=== PATIENT | male | born 1965 | race Caucasian/White ===

== ENCOUNTER 2017-01-08 16:31 | Inpatient (IN) | payer OTHER ==
[~2017-01-08] VITALS: Ht 170 cm; Wt 70.8 kg
[2017-01-08 16:44] VITALS: BP 204/118
--- NOTE | 2017-01-08 16:51 | NUR ---
CARL HOLLOWAY NOTIFIED OF PATIENTS BP.
[2017-01-08 17:21] LABS: BASO # 0.1 10*3/uL (0.0-0.1); BASO % 0.7 % (0.0-1.0); EOS % 0.1 % (1.0-4.0); HEMATOCRIT 40.1 % (42.0-52.0); HEMOGLOBIN 13.6 g/dl (14.0-18.0); LYMPH # 1.3 10*3/uL (1.3-4.4); LYMPH % 18.1 % (27.0-41.0); MEAN CELL VOLUME 105.2 fl (80.0-94.0); MEAN CORPUSCULAR HGB 35.7 pg (27.0-31.0); MEAN CORPUSCULAR HGB CONC 33.9 g/dl (33.0-37.0); MEAN PLATELET VOLUME 12.9 fl (9.6-12.3); MONO # 1.1 10*3/uL (0.1-1.0); NEUT # 4.9 10*3/uL (2.3-7.9); NEUT % 65.7 % (47.0-73.0); PLATELET COUNT AUTOMATED 98 10*3/uL (130-400); RED BLOOD COUNT 3.81 10*6/uL (4.50-5.90); WHITE BLOOD COUNT 7.4 10*3/uL (4.8-10.8)
[2017-01-08 17:35] LABS: ALBUMIN 3.5 gm/dl (3.1-4.5); ALKALINE PHOSPHATASE 217 U/L (45-117); BUN 6 mg/dl (7-24); CHLORIDE 102 mmol/L (98-107); CREATININE 0.62 mg/dL (0.70-1.30); POTASSIUM 3.5 mmol/L (3.5-5.1); SGOT/AST 202 IU/L (3-35); SGPT/ALT 197 U/L (12-78); SODIUM 139 mmol/L (136-145); TOTAL PROTEIN 7.1 gm/dL (6.4-8.2)
--- NOTE | 2017-01-08 17:35 | NUR ---
PT MEDICATED FOR HTN AND WITHDRAWAL SYMPTOMS AT THIS TIME.
[2017-01-08 17:56] LABS: BILIRUBIN NEGATIVE (NEGATIVE); BLOOD 2+ (NEGATIVE); CLARITY CLEAR (CLEAR); COLOR YELLOW (YELLOW); GLUCOSE 2+ (NEGATIVE); KETONE NEGATIVE (NEGATIVE); LEUKO ESTERASE NEGATIVE (NEGATIVE); NITRITE NEGATIVE (NEGATIVE); PH 6.5 (5.0-9.0)
[2017-01-08 18:00] VITALS: BP 156/97
[2017-01-08 18:06] LABS: URINE AMPHETAMINES < 1000 (1000ng/ml); URINE BARBITURATES < 200 (200ng/ml); URINE BENZODIAZEPINES < 200 (200ng/ml); URINE CANNABINOIDS (THC) < 50 (50ng/ml); URINE COCAINE < 300 (300ng/ml); URINE METHADONE < 300 (300ng/ml); URINE OPIATES < 300 (300ng/ml)
[2017-01-08 18:07] LABS: BACTERIA 3+; WBC 0-2 wbc/hpf (0-5)
[2017-01-08 18:10] LABS: URINE PHENCYCLIDINE < 25 (25ng/ml)
[2017-01-08 18:15] VITALS: BP 169/107
[2017-01-08 18:20] LABS: LIPASE 231 U/L (73-393)
[2017-01-08 18:26] LABS: INTERNATIONAL NORM RATIO 0.9 (2.0-3.5)
--- NOTE | 2017-01-08 18:30 | NUR ---
A 51, admitted to [facility]U, under the services of FIDEL Evans DO with a diagnosis of alchol withdrawl. Chief complaint is hx of drinking every day for 30 years. this is thefirst time he has not had a drink in a day. Patient arrived via stretcher from ER. Monitor applied. Initial assessment completed. Vital signs taken and recorded. FIDEL EVANS DO notified of admission to the unit. Orders received. See assessment for past medical history, medications and allergies. Patient and/or family oriented to unit. [facility] visitation policy reviewed. Clothing/patient valuable form completed. SIMON PINEDA
[2017-01-08] MEDS ORDERED: NEURONTIN400 MG PO (18:54)
--- NOTE | 2017-01-08 19:13 | NUR ---
DR. SANTAMARIA HERE TO ASSESS PT. FIRST DOSE OF ATIVAN 1MG PO GIVEN ORDERED.
[2017-01-08 20:00] VITALS: BP 182/110
--- NOTE | 2017-01-08 20:09 | NUR ---
FAMILY VS. [place] PO GIVEN FOR ANXIETY. WILL CONT TO MONITOR. HEP LOCK INTACT. WILL HANG BANANA BAG WHEN RECEIVED FROM PHARMACY. PT REMAINS ALERT AND COOPERATIVE. MONITOR REMAINS NSR IN THE 90'S. PT REMAINS ELEVATED. DR. SANTAMARIA AWARE WHEN HE WAS HERE. PT EATING SUPPER. HOB ELEVATED. CALL LIGHT IN REACH. URINAL AT BEDSIDE.
--- NOTE | 2017-01-08 21:10 | NUR ---
ZESTRIL GIVEN PO PER ORDER. BP NOW 162/103. PT RESTING IN BED WATCHING FOOTBALL. TREMORS STILL NOTED OF HANDS, BUT STATES THAT HE FEELS "SLEEPY".
--- NOTE | 2017-01-08 21:40 | NUR ---
MOTRIN PO FOR C/O'S CHRONIC NECK PAIN. WILL MONITOR.
--- NOTE | 2017-01-08 22:00 | NUR ---
PT BP IS NOW 148/64.
[2017-01-08 22:01] VITALS: BP 148/64
--- NOTE | 2017-01-08 22:03 | NUR ---
EARLIER MEDS EFFECTIVE. RESTING IN BED WITH EYES CLOSED. APPEARS TO BE SLEEPING.
--- NOTE | 2017-01-09 00:18 | NUR ---
ROUTINE ATIVAN GIVEN AT 2320 PER ORDER. EFFECTIVE. RESTING IN BED WITH EYES CLOSED. APPEARS TO BE SLEEPING.
[2017-01-09 04:00] VITALS: BP 155/98
[2017-01-09 04:29] LABS: BASO # 0.1 10*3/uL (0.0-0.1); BASO % 0.7 % (0.0-1.0); EOS # 0.1 10*3/uL (0.0-0.4); EOS % 1.6 % (1.0-4.0); HEMATOCRIT 35.5 % (42.0-52.0); HEMOGLOBIN 11.8 g/dl (14.0-18.0); LYMPH # 2.1 10*3/uL (1.3-4.4); LYMPH % 28.2 % (27.0-41.0); MEAN CELL VOLUME 107.6 fl (80.0-94.0); MEAN CORPUSCULAR HGB 35.8 pg (27.0-31.0); MEAN CORPUSCULAR HGB CONC 33.2 g/dl (33.0-37.0); MEAN PLATELET VOLUME 12.2 fl (9.6-12.3); MONO # 0.8 10*3/uL (0.1-1.0); NEUT # 4.3 10*3/uL (2.3-7.9); NEUT % 58.1 % (47.0-73.0); PLATELET COUNT AUTOMATED 79 10*3/uL (130-400); WHITE BLOOD COUNT 7.4 10*3/uL (4.8-10.8)
--- NOTE | 2017-01-09 04:35 | NUR ---
0420 ROUTINE ATIVAN 1MG PO GIVEN ORDERED. WILL CONT TO MONITOR.
[2017-01-09 04:58] LABS: BUN 6 mg/dl (7-24); CHLORIDE 105 mmol/L (98-107); CREATININE 0.47 mg/dL (0.70-1.30); POTASSIUM 3.1 mmol/L (3.5-5.1); SODIUM 141 mmol/L (136-145)
--- NOTE | 2017-01-09 06:08 | NUR ---
REMAINS SLEEPING WITHOUT DISTRESS. HEP LOCK INTACT. CONDITION GUARDED.
--- NOTE | 2017-01-09 06:58 | NUR ---
Shift chart check completed.24 HR chart check completed.
[2017-01-09 08:00] VITALS: BP 188/110
--- NOTE | 2017-01-09 08:11 | NUR ---
ON ASSESSMENT PATIENT WAS SLEEPING, EASILY AROUSED, REMEMBERED ME FROM YESTERDAY. TREMOR MUCH LESS THAN ON ADMISSION. HE DENIES HALLUCINATIONS. BP REMAINS ELEVATED AND HE HAS A HEADACHE, ALONG WITH HIS CHRONIC NECK PAIN. HE'S NPO FOR LIVER ULTRASOUND. WILL MEDICATED UPON HIS RETURN.
--- NOTE | 2017-01-09 09:15 | NUR ---
PT HAS HAD HIS LIVER ULTRASOUND DONE AND IS BACK, SITTING UP IN HIS CHAIR, EATING BREAKFAST. MEDICATED WITH PRN DOSE OF IBUPROFEN FOR HIS HEADACHE, ALONG WITH HIS ROUTINE SCHEDULED MEDS.
--- NOTE | 2017-01-09 09:56 | NUR ---
DR YAN HAS VISITED. PT MAY BE TRANSFERRED OUT OF ICCU TO A MONITORED BED.
--- NOTE | 2017-01-09 10:54 | NUR ---
DOZING AT INTERVALS SINCE EARLIER MEDS. WILL CONTINUE TO MONITOR FOR SIGNS OF DT'S.
[2017-01-09 12:00] VITALS: BP 160/100
--- NOTE | 2017-01-09 12:32 | NUR ---
DR BO NOTIFIED OF PT'S PERSISTENT HYPERTENSION-160/100. ORDERS RECEIVED.
--- NOTE | 2017-01-09 12:54 | NUR ---
AN ADDITIONAL 10MG OF LISINOPRIL GIVEN PER ORDER. PT HAS BEEN SUPPLEMENTED WITH A TOTAL OF 80MEQ OF K-DUR TODAY (40MEQ ONCE AND AGAIN AT NOON).
--- NOTE | 2017-01-09 12:58 | NUR ---
[facility] NOTIFIED THAT PT WILL BE TRANSFERRED OUT OF [facility] TODAY TO 519.
--- NOTE | 2017-01-09 14:06 | NUR ---
TRANSFERRED IN STABLE CONDITION VIA WC TO [facility] WITH ALL OF HIS BELONGINGS.
--- NOTE | 2017-01-09 15:55 | NUR ---
D/C PLANNING: PATIENT STATED THAT HE IS GOING TO INPATIENT TREATMENT IN [place]. PATIENT STATED THAT HE DOES NOT REMEMBER THE NAME OF THE FACILITY HOWEVER HIS SISTER SET IT UP FOR HIM. SCRATCH POLISHER CALLED SISTER WITH NO SUCCESS. RHINA BRIDGES B.A. SCRATCH POLISHER
[2017-01-09 16:00] VITALS: BP 155/90
[2017-01-09 20:00] VITALS: BP 154/92
--- NOTE | 2017-01-09 21:11 | NUR ---
PATIENTS BP 170/100. DR HILL CALLED AND NOTIFIED. HE STATED HE WOULD PUT AN ORDER FOR THE INCREASED BP. NO OTHER CONCERNS AT THIS TIME.
[2017-01-09 22:51] VITALS: BP 154/97
[2017-01-10] VITALS: BP 154/93
[2017-01-10 06:45] LABS: HEMOGLOBIN 13.1 g/dl (14.0-18.0); MEAN CELL VOLUME 108.3 fl (80.0-94.0); MEAN CORPUSCULAR HGB 36.4 pg (27.0-31.0); MEAN CORPUSCULAR HGB CONC 33.6 g/dl (33.0-37.0); MEAN PLATELET VOLUME 13.2 fl (9.6-12.3); PLATELET COUNT AUTOMATED 84 10*3/uL (130-400); RED CELL DISTRI WIDTH 12.9 % (0-14.5); WHITE BLOOD COUNT 6.2 10*3/uL (4.8-10.8)
[2017-01-10 07:12] LABS: ALBUMIN 2.9 gm/dl (3.1-4.5); BUN 7 mg/dl (7-24); CHLORIDE 104 mmol/L (98-107); CREATININE 0.48 mg/dL (0.70-1.30); MAGNESIUM 2.1 mg/dL (1.5-2.1); POTASSIUM 3.6 mmol/L (3.5-5.1); SGOT/AST 65 IU/L (3-35); SGPT/ALT 110 U/L (12-78); SODIUM 140 mmol/L (136-145)
[2017-01-10 07:13] LABS: ALKALINE PHOSPHATASE 137 U/L (45-117); TOTAL PROTEIN 6.1 gm/dL (6.4-8.2)
[2017-01-10 07:21] LABS: ATYPICAL LYMPHS 2 % (0-0); BASOPHILS 3 % (0-1); PLATELET SUFFICIENCY LOW (NORMAL); TOTAL CELLS COUNTED 100 #CELLS
[2017-01-10 08:00] VITALS: BP 140/78
--- NOTE | 2017-01-10 08:00 | NUR ---
PATIENT RESTING IN BED. VOICES NO COMPLAINTS AT THIS TIME. BED IS IN LOW POSITION. CALL LIGHT WITHIN REACH.
[2017-01-10 08:13] LABS: HEPATITIS B SURFACE AG Negative (Negative); HEPATITIS C VIRUS ANTIBODY <0.1 s/co (0.0-0.9)
--- NOTE | 2017-01-10 09:54 | NUR ---
Shift chart check completed.
[2017-01-10 12:00] VITALS: BP 128/80
[2017-01-10 16:00] VITALS: BP 136/92
--- NOTE | 2017-01-10 16:18 | NUR ---
TB ANDMINISTERED TO LOWER LEFT ARM.
[2017-01-10 20:00] VITALS: BP 142/93
[2017-01-11 00:10] VITALS: BP 133/77
--- NOTE | 2017-01-11 07:40 | NUR ---
RESTING QUIELTY IN BED, SOME TREMORS NOTED. PT C/O HEADACHE. MEDICATED TYLENOL ES ORDERED. STATES OTHER THAN HEADACHE SHE IS FEELING GOOD. SEE SHIFT ASSESSMENT.
[2017-01-11 08:00] VITALS: BP 158/96
--- NOTE | 2017-01-11 09:32 | NUR ---
PT STATES HEADACHE IS BETTER BUT C/O ANXIETY AND TREMORS.
--- NOTE | 2017-01-11 09:35 | NUR ---
MEDICATED PO ATIVAN FOR C/O ANXIETY AND TREMORS.
--- NOTE | 2017-01-11 10:45 | NUR ---
STATES ATIVAN EFFECTIVE.
[2017-01-11 16:00] VITALS: BP 142/98
--- NOTE | 2017-01-11 21:10 | NUR ---
MEDICATED WITH DESYREL PER PRN ORDER FOR INSOMNIA.
[2017-01-12] VITALS: BP 137/96
--- NOTE | 2017-01-12 | NUR ---
DESYREL EFFECTIVE FOR SLEEP.
[2017-01-12 08:00] VITALS: BP 152/86
--- NOTE | 2017-01-12 10:00 | NUR ---
AM MEDS TAKEN.
--- NOTE | 2017-01-12 14:45 | NUR ---
NO DISTRESS NOTED.
[2017-01-12] MEDS ORDERED: ATARAX,VISTARIL50 MG PO (15:41)
[2017-01-12] MEDS ORDERED: HYDR25T PO (15:41)
[2017-01-12] MEDS ORDERED: ZOFRAN 4 MG ED2 TAB PO (15:41)
[2017-01-12] MEDS ORDERED: LISINOPRIL10 M1 PO (15:41)
--- NOTE | 2017-01-12 16:50 | NUR ---
PATIENT DISCHARGED AND STATES THAT HE HAS NO WAY HOME. SISTER IS IN [place]. RN ATTEMPTED TO CALL SISTER ON HER CELL PHONE. MESSAGE LEFT ON HER CELL PHONE. DR. MCDONOUGH NOTIFIED THAT PATIENT HAS NO WAY HOME. HE REQUESTED THAT THE NURSING NUTRITION MANAGER BE CALLED. GERMAIN NANCE NURSING NUTRITION MANAGER NOTIFIED.
--- NOTE | 2017-01-12 17:05 | NUR ---
SISTER RETURNED PHONE CALL AND STATES SHE IS UNABBLE TO PICK PATIENT UP THIS EVENING AND THE FACILITY HE IS GOING TO DOES NOT ACCEPT ANYONE AFTER 3 PM. NURSING PRESSURIZER SPOKE WITH ANIRUDH PARKS AND STATED THAT PATIENT CAN BE DISCHARGED BUT CAN REMAIN IN THE ROOM UNTIL MORNING WHEN SISTER CAN COME AND GET HIM.
--- NOTE | 2017-01-12 17:30 | NUR ---
HEP LOCK REMOVED FOR DISCHARGE. Discharge instructions reviewed with patient/family. Patient receptive and verbalizes understanding. Follow-up care arranged. Written instructions given to patient/family. KAYLA MORENO
== END 2017-01-12 17:30 | disposition home or self-care (01) | DRG 896 ==
LOC: ED 16:31 → ICCU 17:44 → 5E 17:44 → EDHOLD 17:44 → ICCU 17:56 → 5E 01-09 13:19
PROVIDERS: Internal Medicine; Nurse Practitioner Family; ADMIT Emergency Medicine
DX: F10.231 Alcohol dependence with withdrawal delirium (principal); E43 Unspecified severe protein-calorie malnutrition; R65.10 Systemic inflammatory response syndrome (SIRS) of non-infectious origin without acute organ dysfunction; D69.6 Thrombocytopenia, unspecified; I15.9 Secondary hypertension, unspecified; I16.0 Hypertensive urgency; E87.6 Hypokalemia; D53.9 Nutritional anemia, unspecified; F17.200 Nicotine dependence, unspecified, uncomplicated; G89.29 Other chronic pain; M54.2 Cervicalgia; R00.0 Tachycardia, unspecified; R74.0 Nonspecific elevation of levels of transaminase and lactic acid dehydrogenase [LDH]; Z79.899 Other long term (current) drug therapy; Z80.0 Family history of malignant neoplasm of digestive organs; Z82.3 Family history of stroke; Z91.14 Patient's other noncompliance with medication regimen; Z82.49 Family history of ischemic heart disease and other diseases of the circulatory system; Z68.22 Body mass index [BMI] 22.0-22.9, adult